=== PATIENT | male | born 1955 | race Asian ===

== ENCOUNTER 2019-10-30 19:16 | Emergency (ER) | payer MEDICAID, MEDICARE ==
[~2019-10-30] VITALS: Ht 160 cm; Wt 56.7 kg
[~2019-10-30 19:16] MED LIST: ALFUZOSIN HCL10 MG PO
[2019-10-30 20:01] VITALS: BP 129/74
[2019-10-30 20:06] LABS: APPEARANCE,URINE CLEAR; BILIRUBIN, URINE NEGATIVE (NEGATIVE); COLOR,URINE PALE YELLOW; GLUCOSE, URINE (UA) NEGATIVE (NEGATIVE); KETONES,URINE NEGATIVE (NEGATIVE); LEUKOCYTE ESTERASE ,URINE NEGATIVE (NEGATIVE); NITRITE,URINE NEGATIVE (NEGATIVE); PH,URINE 5 (4.5-8.0); PROTEIN,URINE NEGATIVE (NEGATIVE); UROBILINOGEN,URINE NORMAL MG/DL (0.0-1.0)
--- NOTE | 2019-10-30 20:32 | Emergency Room Report ---
History of Present Illness General Chief Complaint: Male Urogenital Problems Source: Patient Present Illness HPI 64-year-old male who presents with urinary retention with pain suprapubically and distention. He reports history of BPH and similar symptoms many years ago. He reported having a procedure which he cannot recall the name a at [facility]. He denies any fevers, chills, nausea or vomiting. He states his last urine was yesterday, nonbloody, with no pain. Allergies: Coded Allergies: No Known Allergies (Unverified , 09/23/16) Nursing Documentation-[facility] Past Medical History: No Stated History Review of Systems Constitutional: Denies: chills, fever Respiratory: Denies: cough, shortness of breath Cardiovascular: Denies: chest pain, palpitations Gastrointestinal: Denies: diarrhea, vomiting Genitourinary: Reports: retention; Denies: hematuria, pain Musculoskeletal: Denies: joint swelling Skin: Denies: rash, lesions Neurological: Denies: headache, dizziness Physical Exam Vital Signs Date Time Temp Pulse Resp B/P (MAP) Pulse Ox O2 Delivery O2 Flow Rate FiO2 10/30/19 19:24 97.9 96 18 123/78 (93) 95 Room Air Sp02 EP Interpretation: reviewed General Appearance: well appearing, no apparent distress, non-toxic Head: normocephalic, atraumatic Eyes: bilateral eye normal inspection ENT: hearing grossly normal, EOM grossly intact, moist mucus membranes Neck: supple Respiratory: lungs clear, normal breath sounds, no respiratory distress, speaking full sentences Cardiovascular #1: regular rate, rhythm, normal capillary refill Cardiovascular #2: 2+ radial (R), 2+ radial (L) Gastrointestinal: soft, no mass, no organomegaly, non-distended, distended Rectal: deferred Genitourinary: normal inspection Musculoskeletal: moves extm spontaneously, no lower extremity edema Neurologic: grossly normal Psychiatric: mood/affect normal Skin: warm/dry, normal turgor Medical Decision Making Diagnostic Impression: Primary Impression: Urinary retention ER Course 64-year-old male presents with urinary retention. History of BPH. Placed Wetzel catheter due to distended bladder found to have 400 cc on initial drainage. Reviewed urinalysis shows no signs of infection. Patient is stable vitals and stable for outpatient follow-up and discharge at urologist. Recommended to have Wetzel removed in 2 to 3 days and evaluation by urology. Laboratory Tests Test 10/30/19 19:50 Urine Color Pale yellow Urine Appearance Clear Urine pH 5 (4.5-8.0) Urine Specific [place] 1.020 (1.005-1.035) Urine Protein Negative (NEGATIVE) Urine Glucose (UA) Negative (NEGATIVE) Urine Ketones Negative (NEGATIVE) Urine Blood Negative (NEGATIVE) Urine Nitrite Negative (NEGATIVE) Urine Bilirubin Negative (NEGATIVE) Urine Urobilinogen Normal MG/DL (0.0-1.0) Urine Leukocyte Esterase Negative (NEGATIVE) Lab Results Impression Urinalysis within normal limits Last Vital Signs Date Time Temp Pulse Resp B/P (MAP) Pulse Ox O2 Delivery O2 Flow Rate FiO2 10/30/19 20:01 97.9 77 18 129/74 95 Room Air Disposition: HOME, SELF-CARE Condition: Stable Referrals: Olvin Arnold M.D. Patient Instructions: Acute Urinary Retention, Male Additional Instructions: Please follow-up with referred urologist or or any other urologist in 2 to 3 days for Wetzel catheter removal and reassessment. Carlos Rdz M.D. Oct 30, 2019 20:32
[2019-10-30 20:52] VITALS: BP 123/69
[2019-10-30 21:41] VITALS: BP 112/67
== END 2019-10-30 21:41 | disposition home or self-care (01) ==
LOC: EMR 20:30
DX: R33.9 Retention of urine, unspecified (principal)
CPT/HCPCS: 51702; 81003; 99284